=== PATIENT | female | born 1955 | race Caucasian/White ===

== ENCOUNTER 2022-11-01 16:21 | Inpatient (IN) | payer MEDICARE, MEDICAID ==
[2022-11-01] MEDS ORDERED: Sodium Chloride 0.9% 1,000 ML IV ONE (17:04)
[2022-11-01] MEDS ORDERED: Ondansetron 4 MG/2 ML SDV IVPUSH ONE (17:12)
[2022-11-01] MEDS ORDERED: Piperacillin/Tazobactam 4.5 GM in Sodium Chloride 0.9% 100 ML IV ONE (17:13)
[2022-11-01 17:20] LABS: BASOPHILS ABSOLUTE AUTO 0.01 K/mm3 (0.01-0.08); BASOPHILS PERCENT AUTO 0.1 % (0.1-1.2); EOSINOPHILS ABSOLUTE AUTO 0.03 K/mm3 (0.04-0.36); EOSINOPHILS PERCENT AUTO 0.3 (0.7-5.8); HEMATOCRIT 44.4 % (34.1-44.9); HEMOGLOBIN 14.4 gm/dl (11.2-15.7); IMMATURE GRAN ABSOLUTE AUTO 0.01 K/mm3 (0.00-0.10); IMMATURE GRAN PERCENT AUTO 0.1 % (<=1.0); LYMPHOCYTES ABSOLUTE AUTO 0.63 K/mm3 (1.18-3.74); LYMPHOCYTES PERCENT AUTO 6.2 % (19.3-51.7); MEAN CORPUSCULAR HEMOGLOBIN 30.1 pg (25.6-32.2); MEAN CORPUSCULAR HGB CONC 32.4 g/dl (32.2-35.5); MEAN CORPUSCULAR VOLUME 92.9 fl (79.4-94.8); MEAN PLATELET VOLUME 8.4 fl (9.4-12.3); MONOCYTES ABSOLUTE AUTO 0.41 K/mm3 (0.24-0.36); NEUTROPHILS ABSOLUTE AUTO 9.11 K/mm3 (1.56-6.13); NEUTROPHILS PERCENT AUTO 89.3 % (34.0-71.1); PLATELET COUNT,PLT 532 K/mm3 (182-369); RED BLOOD CELL COUNT 4.78 M/mm3 (3.98-5.22)
[2022-11-01 17:29] LABS: INR 0.98; PROTHROMBIN TIME 10.5 SECONDS (9.7-12.0)
[2022-11-01] MEDS ORDERED: VANCOmycin 1.75 GM/350 ML 1.75 GM in Premix Bag 1 BAG IV ONE (17:30)
[2022-11-01 17:31] LABS: PTT,PARTIAL THROMBOPLSTIN TIME 29.1 SECONDS (21.7-31.4)
[2022-11-01 17:38] LABS: LACTIC ACID 2.5 mmol/L (0.4-2.0)
[2022-11-01 17:43] LABS: A/G RATIO 0.4 (1-2); ALANINE AMINOTRANSFERASE,ALT 36 U/L (14-59); ALBUMIN 2.1 g/dl (3.4-5.0); ALKALINE PHOSPHATASE 191 U/L (46-116); ANION GAP 22.8 (5-15); ASPARTATE AMNIOTRANSFERASE,AST 40 U/L (15-37); BILIRUBIN TOTAL 0.3 mg/dL (0.2-1.0); BLOOD UREA NITROGEN,BUN 7 mg/dL (7-18); BUN/CREATININE RATIO 7.8 (14-18); CALCIUM 9.1 mg/dL (8.5-10.1); CARBON DIOXIDE,CO2 19 mEq/L (21-32); CHLORIDE,CL 96 mEq/L (98-107); CREATININE 0.9 mg/dL (0.55-1.02); ESTIMATED GFR 71 mL/min (>60); MAGNESIUM 1.2 mg/dL (1.8-2.4); POTASSIUM,K 2.8 mEq/L (3.5-5.1); PROTEIN TOTAL,TP 7.9 g/dl (6.4-8.2); SODIUM,NA 135 mEq/L (136-145); TROPONIN I HIGH SENSITIVITY 8 pg/mL (<=51)
[2022-11-01 17:44] LABS: GLUCOSE RANDOM 414 mg/dL (70-99)
[2022-11-01] MEDS ORDERED: Magnesium Sulfate/Water 2 GM in Premix Bag 1 BAG IV ONE (17:46)
[2022-11-01 18:01] LABS: C-REACTIVE PROTEIN 23.9 mg/dL (<1.0)
[2022-11-01] MEDS: Potassium Chloride 10 MEQ in Premix Bag 1 BAG IV SCH ×5 (18:24→23:58)
[2022-11-01] MEDS ORDERED: Insulin Regular, Human 100 Units/ML 3 ML Vial IV ONE (20:11)
[2022-11-01] MEDS ORDERED: HYDROmorphone 0.5 MG/0.5 ML Syringe IVPUSH ONE (20:18)
[2022-11-01] MEDS: Sodium Chloride 0.9% 1,000 ML IV SCH (20:47)
[2022-11-01 21:23] LABS: ANION GAP 20.3 (5-15); BUN/CREATININE RATIO 6.7 (14-18); CALCIUM 7.8 mg/dL (8.5-10.1); CREATININE 0.9 mg/dL (0.55-1.02); EST CRCL DRUG DOSING (CG) 49.95 mL/min; POTASSIUM,K 3.3 mEq/L (3.5-5.1)
[2022-11-01] MEDS ORDERED: Insulin Regular in 0.9 % NACL 100 ML IV SCH (21:30)
[2022-11-01] MEDS ORDERED: Insulin Regular, Human 100 Units/ML 3 ML Vial SUBCUT ONE (23:04)
[2022-11-02] MEDS ORDERED: Piperacillin/Tazobactam 3.375 GM in Sodium Chloride 0.9% 100 ML IV SCH ×2
[2022-11-02] MEDS: Potassium Chloride 10 MEQ in Premix Bag 1 BAG IV SCH ×3 (00:54→03:00)
[2022-11-02] MEDS ORDERED: Ondansetron 4 MG/2 ML SDV IVPUSH PRN ×2 (01:31→17:41)
[2022-11-02] MEDS ORDERED: Acetaminophen 325 MG Tab PO PRN (01:45)
[2022-11-02] MEDS: Sodium Chloride 0.9% 1,000 ML IV SCH ×4 (02:00→18:36)
[2022-11-02] MEDS: Insulin Lispro 100 Unit/ML 3 ML KwikPen SUBCUT SCH ×2 (09:05→10:56)
[2022-11-02] MEDS: Piperacillin/Tazobactam 4.5 GM in Sodium Chloride 0.9% 100 ML IV SCH ×2 (09:05→17:50)
[2022-11-02 10:52] LABS: ANION GAP 18.2 (5-15); BUN/CREATININE RATIO 8.3 (14-18); CALCIUM 8.2 mg/dL (8.5-10.1); CREATININE 0.6 mg/dL (0.55-1.02); EST CRCL DRUG DOSING (CG) 74.92 mL/min; POTASSIUM,K 3.2 mEq/L (3.5-5.1)
[2022-11-02] MEDS: Acetaminophen/oxyCODONE 325-5 MG Tab PO PRN ×3 (10:53→20:45)
[2022-11-02 12:01] LABS: HEMATOCRIT 37.1 % (34.1-44.9); MEAN CORPUSCULAR HEMOGLOBIN 30.8 pg (25.6-32.2); MEAN CORPUSCULAR HGB CONC 32.3 g/dl (32.2-35.5); MEAN CORPUSCULAR VOLUME 95.1 fl (79.4-94.8); MEAN PLATELET VOLUME 8.2 fl (9.4-12.3); WHITE BLOOD CELL COUNT,WBC 11.07 K/mm3 (3.98-10.04)
[2022-11-02 12:11] LABS: PLATELET COUNT,PLT 427 K/mm3 (182-369)
[2022-11-02] MEDS ORDERED: Nystatin Topical Powder 15 GM Bottle TOP SCH ×2 (13:00→13:15)
[2022-11-02] MEDS ORDERED: Insulin Regular in 0.9 % NACL 100 ML IV SCH ×2 (17:15→21:00)
[2022-11-02] MEDS ORDERED: Insulin Lispro 100 Unit/ML 3 ML KwikPen SUBCUT SCH (17:45)
[2022-11-02 18:30] LABS: ANION GAP 19.5 (5-15); BUN/CREATININE RATIO 7.1 (14-18); CALCIUM 7.9 mg/dL (8.5-10.1); CREATININE 0.7 mg/dL (0.55-1.02); EST CRCL DRUG DOSING (CG) 64.21 mL/min; POTASSIUM,K 3.5 mEq/L (3.5-5.1)
[2022-11-02] MEDS: VANCOmycin 1.25 GM/250 ML 1.25 GM in Premix Bag 1 BAG IV SCH (18:57)
[2022-11-02] MEDS ORDERED: VANCOmycin 1.25 GM/250 ML 1.25 GM in Premix Bag 1 BAG IV SCH (19:00)
[2022-11-02 22:02] LABS: BUN/CREATININE RATIO 7.1 (14-18); CALCIUM 7.5 mg/dL (8.5-10.1); CREATININE 0.7 mg/dL (0.55-1.02); EST CRCL DRUG DOSING (CG) 64.21 mL/min
[2022-11-02] MEDS: Nystatin Topical Powder 15 GM Bottle TOP SCH (22:30)
[2022-11-02] MEDS ORDERED: Insulin Glargine,Human Rec. Analog 100 Units/ML 3 ML Pen SUBCUT ONE (23:30)
[2022-11-02] MEDS ORDERED: Potassium Chloride 20 MEQ Tab.ER PO ONE (23:32)
[2022-11-03] MEDS: Sodium Chloride 0.9% 1,000 ML IV SCH ×3 (00:01→11:16)
[2022-11-03] MEDS: Potassium Chloride 10 MEQ in Premix Bag 1 BAG IV SCH ×4 (00:01→03:00)
[2022-11-03] MEDS: Piperacillin/Tazobactam 4.5 GM in Sodium Chloride 0.9% 100 ML IV SCH ×3 (01:45→17:38)
[2022-11-03] MEDS: Acetaminophen/oxyCODONE 325-5 MG Tab PO PRN ×5 (02:51→20:14)
[2022-11-03 06:26] LABS: ANION GAP 20.6 (5-15); BUN/CREATININE RATIO 8.3 (14-18); CALCIUM 8.1 mg/dL (8.5-10.1); CREATININE 0.6 mg/dL (0.55-1.02); EST CRCL DRUG DOSING (CG) 74.92 mL/min; POTASSIUM,K 3.6 mEq/L (3.5-5.1)
[2022-11-03] MEDS: VANCOmycin 1.25 GM/250 ML 1.25 GM in Premix Bag 1 BAG IV SCH (07:17)
[2022-11-03] MEDS: Insulin Lispro 100 Unit/ML 3 ML KwikPen SUBCUT SCH ×4 (08:30→21:57)
[2022-11-03] MEDS: Nystatin Topical Powder 15 GM Bottle TOP SCH ×2 (08:32→20:13)
[2022-11-03] MEDS ORDERED: Insulin Glargine,Human Rec. Analog 100 Units/ML 3 ML Pen SUBCUT SCH ×2 (11:30→21:00)
[2022-11-03] MEDS ORDERED: Insulin Regular in 0.9 % NACL 100 ML IV SCH (12:30)
[2022-11-03] MEDS: Enoxaparin 40 MG/0.4 ML Syringe SUBCUT SCH (13:18)
[2022-11-03 13:49] LABS: ANION GAP 16.3 (5-15); BUN/CREATININE RATIO 6.3 (14-18); CALCIUM 7.8 mg/dL (8.5-10.1); CREATININE 0.8 mg/dL (0.55-1.02); EST CRCL DRUG DOSING (CG) 55.7 mL/min; POTASSIUM,K 3.3 mEq/L (3.5-5.1)
[2022-11-03] MEDS: HYDROmorphone 0.5 MG/0.5 ML Syringe IVPUSH PRN ×2 (15:54→22:46)
[2022-11-03] MEDS ORDERED: Dextrose 5% in Water 1,000 ML IV SCH (17:30)
[2022-11-03 18:29] LABS: ANION GAP 19.9 (5-15); BUN/CREATININE RATIO 8.6 (14-18); CALCIUM 7.9 mg/dL (8.5-10.1); CREATININE 0.7 mg/dL (0.55-1.02); EST CRCL DRUG DOSING (CG) 63.66 mL/min
[2022-11-03 18:36] LABS: POTASSIUM,K 3.9 mEq/L (3.5-5.1)
[2022-11-03] MEDS: VANCOmycin 1.5 GM/300 ML 1.5 GM in Premix Bag 1 BAG IV SCH (20:14)
[2022-11-03 21:23] LABS: ANION GAP 15.6 (5-15); CREATININE 0.7 mg/dL (0.55-1.02); EST CRCL DRUG DOSING (CG) 63.66 mL/min; POTASSIUM,K 3.6 mEq/L (3.5-5.1)
[2022-11-04 01:34] LABS: ANION GAP 17.2 (5-15); CALCIUM 7.9 mg/dL (8.5-10.1); CREATININE 0.6 mg/dL (0.55-1.02); EST CRCL DRUG DOSING (CG) 74.27 mL/min; POTASSIUM,K 3.2 mEq/L (3.5-5.1)
[2022-11-04] MEDS: Piperacillin/Tazobactam 4.5 GM in Sodium Chloride 0.9% 100 ML IV SCH ×3 (02:05→18:19)
[2022-11-04] MEDS: Acetaminophen/oxyCODONE 325-5 MG Tab PO PRN ×6 (02:09→22:12)
[2022-11-04] MEDS ORDERED: Dextrose 5%-0.45% NaCl 1,000 ML ONE (02:43)
[2022-11-04] MEDS: Dextrose 5%-0.45% NaCl 1,000 ML IV SCH ×3 (02:53→18:42)
[2022-11-04] MEDS: Potassium Chloride 10 MEQ in Premix Bag 1 BAG IV SCH ×4 (04:53→08:12)
[2022-11-04 05:31] LABS: BUN/CREATININE RATIO 7.1 (14-18); CALCIUM 7.6 mg/dL (8.5-10.1); CREATININE 0.7 mg/dL (0.55-1.02); EST CRCL DRUG DOSING (CG) 63.66 mL/min
[2022-11-04] MEDS: VANCOmycin 1.5 GM/300 ML 1.5 GM in Premix Bag 1 BAG IV SCH ×2 (06:23→18:45)
[2022-11-04] MEDS ORDERED: Insulin Glargine,Human Rec. Analog 100 Units/ML 3 ML Pen SUBCUT SCH (09:00)
[2022-11-04 10:00] LABS: BUN/CREATININE RATIO 7.1 (14-18); CALCIUM 8.2 mg/dL (8.5-10.1); CREATININE 0.7 mg/dL (0.55-1.02); EST CRCL DRUG DOSING (CG) 63.66 mL/min
[2022-11-04 13:38] LABS: ANION GAP 16.5 (5-15); BUN/CREATININE RATIO 5.7 (14-18); CALCIUM 8.2 mg/dL (8.5-10.1); CREATININE 0.7 mg/dL (0.55-1.02); EST CRCL DRUG DOSING (CG) 63.66 mL/min; POTASSIUM,K 3.5 mEq/L (3.5-5.1)
[2022-11-04] MEDS: Enoxaparin 40 MG/0.4 ML Syringe SUBCUT SCH (14:16)
[2022-11-04] MEDS: Nystatin Topical Powder 15 GM Bottle TOP SCH ×2 (14:21→20:52)
[2022-11-04 18:17] LABS: ANION GAP 16.5 (5-15); BUN/CREATININE RATIO 6.7 (14-18); CALCIUM 8.1 mg/dL (8.5-10.1); CREATININE 0.6 mg/dL (0.55-1.02); EST CRCL DRUG DOSING (CG) 74.27 mL/min; POTASSIUM,K 3.5 mEq/L (3.5-5.1)
[2022-11-04] MEDS: HYDROmorphone 0.5 MG/0.5 ML Syringe IVPUSH PRN (20:47)
[2022-11-04 22:29] LABS: ANION GAP 18.5 (5-15); CREATININE 0.6 mg/dL (0.55-1.02); EST CRCL DRUG DOSING (CG) 74.27 mL/min; POTASSIUM,K 3.5 mEq/L (3.5-5.1)
[2022-11-05] MEDS: HYDROmorphone 0.5 MG/0.5 ML Syringe IVPUSH PRN ×4 (00:30→20:37)
[2022-11-05] MEDS: Dextrose 5%-0.45% NaCl 1,000 ML IV SCH (01:28)
[2022-11-05] MEDS: Piperacillin/Tazobactam 4.5 GM in Sodium Chloride 0.9% 100 ML IV SCH ×3 (02:00→17:51)
[2022-11-05] MEDS: Acetaminophen/oxyCODONE 325-5 MG Tab PO PRN ×5 (02:05→22:04)
[2022-11-05 02:16] LABS: ANION GAP 17.4 (5-15); CALCIUM 7.6 mg/dL (8.5-10.1); CREATININE 0.6 mg/dL (0.55-1.02); EST CRCL DRUG DOSING (CG) 74.27 mL/min; POTASSIUM,K 3.4 mEq/L (3.5-5.1)
[2022-11-05 06:06] LABS: HEMATOCRIT 32.6 % (34.1-44.9); MEAN CORPUSCULAR HGB CONC 31.3 g/dl (32.2-35.5); MEAN CORPUSCULAR VOLUME 95.9 fl (79.4-94.8); MEAN PLATELET VOLUME 7.9 fl (9.4-12.3); PLATELET COUNT,PLT 433 K/mm3 (182-369); WHITE BLOOD CELL COUNT,WBC 8.85 K/mm3 (3.98-10.04)
[2022-11-05] MEDS: VANCOmycin 1.5 GM/300 ML 1.5 GM in Premix Bag 1 BAG IV SCH ×2 (06:08→21:19)
[2022-11-05 06:11] LABS: HEMOGLOBIN 10.2 gm/dl (11.2-15.7)
[2022-11-05 06:23] LABS: ANION GAP 12.3 (5-15); CALCIUM 7.9 mg/dL (8.5-10.1); CREATININE 0.6 mg/dL (0.55-1.02); EST CRCL DRUG DOSING (CG) 74.27 mL/min; POTASSIUM,K 3.3 mEq/L (3.5-5.1)
[2022-11-05] MEDS ORDERED: Magnesium Sulfate/Water 2 GM/50 ML BAG IV ONE (08:00)
[2022-11-05] MEDS ORDERED: Magnesium Sulfate (4.06 MEQ/ML) 5 GM/10 ML SDV IV ONE (08:00)
[2022-11-05] MEDS ORDERED: Magnesium Sulfate/Water 50 ML ONE (08:30)
[2022-11-05] MEDS: Dextrose 5%-0.9% NaCl with KCl 1,000 ML IV SCH ×3 (08:35→23:30)
[2022-11-05] MEDS: Potassium Chloride 10 MEQ in Premix Bag 1 BAG IV SCH ×4 (08:44→13:05)
[2022-11-05 09:26] LABS: ANION GAP 16.5 (5-15); BUN/CREATININE RATIO 3.3 (14-18); CALCIUM 8.1 mg/dL (8.5-10.1); CREATININE 0.6 mg/dL (0.55-1.02); EST CRCL DRUG DOSING (CG) 74.27 mL/min; POTASSIUM,K 3.5 mEq/L (3.5-5.1)
[2022-11-05] MEDS: Enoxaparin 40 MG/0.4 ML Syringe SUBCUT SCH (13:06)
[2022-11-05 13:51] LABS: ANION GAP 16.9 (5-15); CALCIUM 8.3 mg/dL (8.5-10.1); CREATININE 0.6 mg/dL (0.55-1.02); EST CRCL DRUG DOSING (CG) 74.27 mL/min; POTASSIUM,K 3.9 mEq/L (3.5-5.1)
[2022-11-05] MEDS: Calcium Carbonate 500 MG Tab.Chew PO PRN ×2 (14:03→18:19)
[2022-11-05] MEDS: Nystatin Topical Powder 15 GM Bottle TOP SCH ×2 (20:42→22:06)
[2022-11-05 21:54] LABS: ANION GAP 15.7 (5-15); BUN/CREATININE RATIO 2.9 (14-18); CALCIUM 7.8 mg/dL (8.5-10.1); CREATININE 0.7 mg/dL (0.55-1.02); EST CRCL DRUG DOSING (CG) 63.66 mL/min; POTASSIUM,K 3.7 mEq/L (3.5-5.1)
[2022-11-05] MEDS: traZODone 50 MG Tab PO PRN (22:04)
[2022-11-06] MEDS: HYDROmorphone 0.5 MG/0.5 ML Syringe IVPUSH PRN ×4 (00:06→18:06)
[2022-11-06 01:25] LABS: ANION GAP 14.8 (5-15); BUN/CREATININE RATIO 3.3 (14-18); CALCIUM 7.8 mg/dL (8.5-10.1); CREATININE 0.6 mg/dL (0.55-1.02); EST CRCL DRUG DOSING (CG) 74.27 mL/min; POTASSIUM,K 3.8 mEq/L (3.5-5.1)
[2022-11-06] MEDS: Piperacillin/Tazobactam 4.5 GM in Sodium Chloride 0.9% 100 ML IV SCH ×4 (02:13→19:52)
[2022-11-06] MEDS: Acetaminophen/oxyCODONE 325-5 MG Tab PO PRN ×5 (02:14→21:04)
[2022-11-06 05:18] LABS: BASOPHILS ABSOLUTE AUTO 0.02 K/mm3 (0.01-0.08); BASOPHILS PERCENT AUTO 0.2 % (0.1-1.2); EOSINOPHILS ABSOLUTE AUTO 0.14 K/mm3 (0.04-0.36); EOSINOPHILS PERCENT AUTO 1.2 (0.7-5.8); HEMATOCRIT 32.2 % (34.1-44.9); HEMOGLOBIN 10.2 gm/dl (11.2-15.7); IMMATURE GRAN ABSOLUTE AUTO 0.06 K/mm3 (0.00-0.10); IMMATURE GRAN PERCENT AUTO 0.5 % (<=1.0); LYMPHOCYTES ABSOLUTE AUTO 1.18 K/mm3 (1.18-3.74); LYMPHOCYTES PERCENT AUTO 10.5 % (19.3-51.7); MEAN CORPUSCULAR HEMOGLOBIN 30.7 pg (25.6-32.2); MEAN CORPUSCULAR HGB CONC 31.7 g/dl (32.2-35.5); MEAN PLATELET VOLUME 7.9 fl (9.4-12.3); MONOCYTES ABSOLUTE AUTO 1.44 K/mm3 (0.24-0.36); MONOCYTES PERCENT AUTO 12.8 % (4.7-12.5); NEUTROPHILS PERCENT AUTO 74.8 % (34.0-71.1); PLATELET COUNT,PLT 446 K/mm3 (182-369); RED BLOOD CELL COUNT 3.32 M/mm3 (3.98-5.22); WHITE BLOOD CELL COUNT,WBC 11.24 K/mm3 (3.98-10.04)
[2022-11-06 05:36] LABS: A/G RATIO 0.3 (1-2); ALBUMIN 1.1 g/dl (3.4-5.0); ANION GAP 13.8 (5-15); BILIRUBIN TOTAL 0.2 mg/dL (0.2-1.0); BUN/CREATININE RATIO 3.3 (14-18); CALCIUM 7.9 mg/dL (8.5-10.1); CREATININE 0.6 mg/dL (0.55-1.02); EST CRCL DRUG DOSING (CG) 74.27 mL/min; POTASSIUM,K 3.8 mEq/L (3.5-5.1); PROTEIN TOTAL,TP 5.4 g/dl (6.4-8.2)
[2022-11-06 05:45] LABS: SLIDE REVIEW ABNORMAL SMEAR
[2022-11-06] MEDS: Dextrose 5%-0.9% NaCl with KCl 1,000 ML IV SCH ×3 (06:12→23:41)
[2022-11-06] MEDS: Nystatin Topical Powder 15 GM Bottle TOP SCH ×2 (09:00→21:06)
[2022-11-06] MEDS: Insulin Lispro 100 Unit/ML 3 ML KwikPen SUBCUT SCH ×3 (10:57→17:23)
[2022-11-06] MEDS: Enoxaparin 40 MG/0.4 ML Syringe SUBCUT SCH (13:18)
[2022-11-06] MEDS: traZODone 50 MG Tab PO PRN (21:04)
[2022-11-07] MEDS: Acetaminophen/oxyCODONE 325-5 MG Tab PO PRN ×4 (02:09→17:01)
[2022-11-07] MEDS: Piperacillin/Tazobactam 4.5 GM in Sodium Chloride 0.9% 100 ML IV SCH ×3 (02:09→18:21)
[2022-11-07 05:55] LABS: BASOPHILS ABSOLUTE AUTO 0.03 K/mm3 (0.01-0.08); BASOPHILS PERCENT AUTO 0.3 % (0.1-1.2); EOSINOPHILS ABSOLUTE AUTO 0.16 K/mm3 (0.04-0.36); EOSINOPHILS PERCENT AUTO 1.5 (0.7-5.8); HEMATOCRIT 31.9 % (34.1-44.9); HEMOGLOBIN 9.9 gm/dl (11.2-15.7); IMMATURE GRAN ABSOLUTE AUTO 0.08 K/mm3 (0.00-0.10); IMMATURE GRAN PERCENT AUTO 0.8 % (<=1.0); LYMPHOCYTES ABSOLUTE AUTO 1.16 K/mm3 (1.18-3.74); MEAN CORPUSCULAR HEMOGLOBIN 30.3 pg (25.6-32.2); MEAN CORPUSCULAR VOLUME 97.6 fl (79.4-94.8); MONOCYTES ABSOLUTE AUTO 1.37 K/mm3 (0.24-0.36); NEUTROPHILS ABSOLUTE AUTO 7.73 K/mm3 (1.56-6.13); NEUTROPHILS PERCENT AUTO 73.4 % (34.0-71.1); PLATELET COUNT,PLT 467 K/mm3 (182-369); RED BLOOD CELL COUNT 3.27 M/mm3 (3.98-5.22); WHITE BLOOD CELL COUNT,WBC 10.53 K/mm3 (3.98-10.04)
[2022-11-07 06:14] LABS: A/G RATIO 0.2 (1-2); ANION GAP 11.9 (5-15); BILIRUBIN TOTAL 0.2 mg/dL (0.2-1.0); BUN/CREATININE RATIO 2.9 (14-18); CREATININE 0.7 mg/dL (0.55-1.02); EST CRCL DRUG DOSING (CG) 63.66 mL/min; MAGNESIUM 1.6 mg/dL (1.8-2.4); POTASSIUM,K 3.9 mEq/L (3.5-5.1); PROTEIN TOTAL,TP 5.4 g/dl (6.4-8.2)
[2022-11-07] MEDS: Dextrose 5%-0.9% NaCl with KCl 1,000 ML IV SCH (06:22)
[2022-11-07 06:28] LABS: SLIDE REVIEW ABNORMAL SMEAR
[2022-11-07] MEDS: Insulin Lispro 100 Unit/ML 3 ML KwikPen SUBCUT SCH ×3 (07:59→18:12)
[2022-11-07 10:30] LABS: HEMOGLOBIN A1C >14.0 %
[2022-11-07] MEDS ORDERED: Magnesium Sulfate/Water 2 GM in Premix Bag 1 BAG IV ONE (11:54)
[2022-11-07] MEDS ORDERED: Iopamidol 612 MG/ML 100 ML Bottle IVPUSH ONE (12:25)
[2022-11-07] MEDS ORDERED: Sodium Chloride 0.9% 10 ML Syringe FLUSH PRN (12:25)
[2022-11-07] MEDS: Insulin Glargine,Human Rec. Analog 100 Units/ML 3 ML Pen SUBCUT SCH (12:33)
[2022-11-07] MEDS: Nystatin Topical Powder 15 GM Bottle TOP SCH ×2 (12:36→20:44)
[2022-11-07] MEDS: Enoxaparin 40 MG/0.4 ML Syringe SUBCUT SCH (12:46)
[2022-11-07] MEDS: HYDROmorphone 0.5 MG/0.5 ML Syringe IVPUSH PRN (13:17)
[2022-11-07] MEDS: Gabapentin 100 MG Cap PO SCH ×2 (15:43→20:43)
[2022-11-07] MEDS: Acetaminophen 325 MG Tab PO PRN (17:02)
[2022-11-07] MEDS: Mirtazapine 15 MG Tab PO SCH (20:43)
[2022-11-08] MEDS: Acetaminophen/oxyCODONE 325-5 MG Tab PO PRN ×5 (00:07→18:03)
[2022-11-08] MEDS: traZODone 50 MG Tab PO PRN ×2 (00:08→20:46)
[2022-11-08] MEDS: Piperacillin/Tazobactam 4.5 GM in Sodium Chloride 0.9% 100 ML IV SCH ×3 (02:20→18:03)
[2022-11-08 06:19] LABS: BASOPHILS ABSOLUTE AUTO 0.02 K/mm3 (0.01-0.08); BASOPHILS PERCENT AUTO 0.2 % (0.1-1.2); EOSINOPHILS ABSOLUTE AUTO 0.21 K/mm3 (0.04-0.36); EOSINOPHILS PERCENT AUTO 2.4 (0.7-5.8); HEMATOCRIT 31.1 % (34.1-44.9); HEMOGLOBIN 9.5 gm/dl (11.2-15.7); IMMATURE GRAN ABSOLUTE AUTO 0.07 K/mm3 (0.00-0.10); IMMATURE GRAN PERCENT AUTO 0.8 % (<=1.0); LYMPHOCYTES ABSOLUTE AUTO 1.06 K/mm3 (1.18-3.74); MEAN CORPUSCULAR HEMOGLOBIN 29.9 pg (25.6-32.2); MEAN CORPUSCULAR HGB CONC 30.5 g/dl (32.2-35.5); MEAN CORPUSCULAR VOLUME 97.8 fl (79.4-94.8); MEAN PLATELET VOLUME 8.2 fl (9.4-12.3); MONOCYTES ABSOLUTE AUTO 1.13 K/mm3 (0.24-0.36); MONOCYTES PERCENT AUTO 12.8 % (4.7-12.5); NEUTROPHILS ABSOLUTE AUTO 6.32 K/mm3 (1.56-6.13); NEUTROPHILS PERCENT AUTO 71.8 % (34.0-71.1); PLATELET COUNT,PLT 447 K/mm3 (182-369); RED BLOOD CELL COUNT 3.18 M/mm3 (3.98-5.22); WHITE BLOOD CELL COUNT,WBC 8.81 K/mm3 (3.98-10.04)
[2022-11-08 06:24] LABS: ANION GAP 15.3 (5-15); BUN/CREATININE RATIO 2.9 (14-18); C-REACTIVE PROTEIN 11.5 mg/dL (<1.0); CALCIUM 8.3 mg/dL (8.5-10.1); CREATININE 0.7 mg/dL (0.55-1.02); EST CRCL DRUG DOSING (CG) 63.66 mL/min; MAGNESIUM 1.9 mg/dL (1.8-2.4); POTASSIUM,K 3.3 mEq/L (3.5-5.1)
[2022-11-08] MEDS: Insulin Lispro 100 Unit/ML 3 ML KwikPen SUBCUT SCH ×3 (07:32→17:00)
[2022-11-08] MEDS: buPROPion 150 MG Tab.SR PO SCH (08:25)
[2022-11-08] MEDS: Magnesium Oxide 400 MG Tab PO SCH (08:25)
[2022-11-08] MEDS: Gabapentin 100 MG Cap PO SCH ×3 (08:25→20:49)
[2022-11-08] MEDS: Potassium Chloride 20 MEQ Tab.ER PO SCH ×2 (08:26→16:01)
[2022-11-08] MEDS: Nystatin Topical Powder 15 GM Bottle TOP SCH ×2 (08:27→20:48)
[2022-11-08] MEDS: Insulin Glargine,Human Rec. Analog 100 Units/ML 3 ML Pen SUBCUT SCH (08:27)
[2022-11-08] MEDS: Enoxaparin 40 MG/0.4 ML Syringe SUBCUT SCH (13:21)
[2022-11-08] MEDS: Acetaminophen 325 MG Tab PO PRN (20:46)
[2022-11-08] MEDS: Mirtazapine 15 MG Tab PO SCH (20:46)
[2022-11-09] MEDS: Piperacillin/Tazobactam 4.5 GM in Sodium Chloride 0.9% 100 ML IV SCH ×3 (01:48→17:18)
[2022-11-09] MEDS: Acetaminophen/oxyCODONE 325-5 MG Tab PO PRN ×4 (03:03→21:31)
[2022-11-09 05:55] LABS: BASOPHILS ABSOLUTE AUTO 0.03 K/mm3 (0.01-0.08); BASOPHILS PERCENT AUTO 0.3 % (0.1-1.2); EOSINOPHILS PERCENT AUTO 2.2 (0.7-5.8); HEMATOCRIT 32.2 % (34.1-44.9); IMMATURE GRAN ABSOLUTE AUTO 0.07 K/mm3 (0.00-0.10); IMMATURE GRAN PERCENT AUTO 0.8 % (<=1.0); LYMPHOCYTES ABSOLUTE AUTO 1.14 K/mm3 (1.18-3.74); LYMPHOCYTES PERCENT AUTO 12.7 % (19.3-51.7); MEAN CORPUSCULAR HEMOGLOBIN 30.5 pg (25.6-32.2); MEAN CORPUSCULAR HGB CONC 31.1 g/dl (32.2-35.5); MEAN CORPUSCULAR VOLUME 98.2 fl (79.4-94.8); MONOCYTES ABSOLUTE AUTO 1.05 K/mm3 (0.24-0.36); MONOCYTES PERCENT AUTO 11.7 % (4.7-12.5); NEUTROPHILS ABSOLUTE AUTO 6.47 K/mm3 (1.56-6.13); NEUTROPHILS PERCENT AUTO 72.3 % (34.0-71.1); PLATELET COUNT,PLT 478 K/mm3 (182-369); RED BLOOD CELL COUNT 3.28 M/mm3 (3.98-5.22); WHITE BLOOD CELL COUNT,WBC 8.96 K/mm3 (3.98-10.04)
[2022-11-09 06:11] LABS: BUN/CREATININE RATIO 6.3 (14-18); C-REACTIVE PROTEIN 11.6 mg/dL (<1.0); CALCIUM 8.3 mg/dL (8.5-10.1); CREATININE 0.8 mg/dL (0.55-1.02); EST CRCL DRUG DOSING (CG) 55.7 mL/min; MAGNESIUM 1.7 mg/dL (1.8-2.4)
[2022-11-09 06:24] LABS: ANION GAP 14.4 (5-15)
[2022-11-09 06:25] LABS: POTASSIUM,K 4.4 mEq/L (3.5-5.1)
[2022-11-09] MEDS: Insulin Lispro 100 Unit/ML 3 ML KwikPen SUBCUT SCH ×3 (07:15→17:09)
[2022-11-09] MEDS ORDERED: Magnesium Sulfate/Water 2 GM in Premix Bag 1 BAG IV ONE (08:00)
[2022-11-09] MEDS: Gabapentin 100 MG Cap PO SCH ×3 (08:27→21:31)
[2022-11-09] MEDS: HYDROmorphone 0.5 MG/0.5 ML Syringe IVPUSH PRN ×2 (08:27→17:18)
[2022-11-09] MEDS: Insulin Glargine,Human Rec. Analog 100 Units/ML 3 ML Pen SUBCUT SCH (08:28)
[2022-11-09] MEDS: Magnesium Oxide 400 MG Tab PO SCH (08:28)
[2022-11-09] MEDS: buPROPion 150 MG Tab.SR PO SCH (08:28)
[2022-11-09] MEDS: Nystatin Topical Powder 15 GM Bottle TOP SCH ×2 (08:29→21:31)
[2022-11-09] MEDS ORDERED: LORazepam 2 MG/ML SDV IVPUSH ONE (10:00)
[2022-11-09] MEDS: Saccharomyces Boulardii (Probiotic) 250 MG Cap PO SCH ×2 (10:58→21:31)
[2022-11-09] MEDS: Enoxaparin 40 MG/0.4 ML Syringe SUBCUT SCH (14:49)
[2022-11-09] MEDS: Mirtazapine 15 MG Tab PO SCH (21:31)
[2022-11-09] MEDS: traZODone 50 MG Tab PO PRN (21:31)
[2022-11-10] MEDS: Piperacillin/Tazobactam 4.5 GM in Sodium Chloride 0.9% 100 ML IV SCH ×3 (01:33→18:13)
[2022-11-10] MEDS: Acetaminophen/oxyCODONE 325-5 MG Tab PO PRN ×3 (05:29→15:41)
[2022-11-10 06:05] LABS: BASOPHILS ABSOLUTE AUTO 0.02 K/mm3 (0.01-0.08); BASOPHILS PERCENT AUTO 0.3 % (0.1-1.2); EOSINOPHILS ABSOLUTE AUTO 0.27 K/mm3 (0.04-0.36); EOSINOPHILS PERCENT AUTO 3.4 (0.7-5.8); HEMATOCRIT 34.7 % (34.1-44.9); HEMOGLOBIN 10.8 gm/dl (11.2-15.7); IMMATURE GRAN ABSOLUTE AUTO 0.04 K/mm3 (0.00-0.10); IMMATURE GRAN PERCENT AUTO 0.5 % (<=1.0); LYMPHOCYTES ABSOLUTE AUTO 1.25 K/mm3 (1.18-3.74); LYMPHOCYTES PERCENT AUTO 15.9 % (19.3-51.7); MEAN CORPUSCULAR HEMOGLOBIN 30.3 pg (25.6-32.2); MEAN CORPUSCULAR HGB CONC 31.1 g/dl (32.2-35.5); MEAN CORPUSCULAR VOLUME 97.5 fl (79.4-94.8); MEAN PLATELET VOLUME 8.1 fl (9.4-12.3); MONOCYTES ABSOLUTE AUTO 1.01 K/mm3 (0.24-0.36); MONOCYTES PERCENT AUTO 12.8 % (4.7-12.5); NEUTROPHILS ABSOLUTE AUTO 5.27 K/mm3 (1.56-6.13); NEUTROPHILS PERCENT AUTO 67.1 % (34.0-71.1); PLATELET COUNT,PLT 521 K/mm3 (182-369); RED BLOOD CELL COUNT 3.56 M/mm3 (3.98-5.22); WHITE BLOOD CELL COUNT,WBC 7.86 K/mm3 (3.98-10.04)
[2022-11-10 06:37] LABS: ANION GAP 14.1 (5-15); CALCIUM 8.8 mg/dL (8.5-10.1); CREATININE 0.8 mg/dL (0.55-1.02); EST CRCL DRUG DOSING (CG) 55.7 mL/min; POTASSIUM,K 4.1 mEq/L (3.5-5.1)
[2022-11-10 06:40] LABS: C-REACTIVE PROTEIN 13.3 mg/dL (<1.0)
[2022-11-10] MEDS: Insulin Lispro 100 Unit/ML 3 ML KwikPen SUBCUT SCH ×3 (07:08→17:22)
[2022-11-10 07:36] LABS: SLIDE REVIEW ABNORMAL SMEAR
[2022-11-10] MEDS: HYDROmorphone 0.5 MG/0.5 ML Syringe IVPUSH PRN ×2 (08:19→12:00)
[2022-11-10] MEDS: Gabapentin 100 MG Cap PO SCH ×2 (08:20→15:41)
[2022-11-10] MEDS: Magnesium Oxide 400 MG Tab PO SCH (08:20)
[2022-11-10] MEDS: Saccharomyces Boulardii (Probiotic) 250 MG Cap PO SCH (08:20)
[2022-11-10] MEDS: buPROPion 150 MG Tab.SR PO SCH (08:20)
[2022-11-10] MEDS: Insulin Glargine,Human Rec. Analog 100 Units/ML 3 ML Pen SUBCUT SCH (08:20)
[2022-11-10] MEDS: Nystatin Topical Powder 15 GM Bottle TOP SCH (08:24)
[2022-11-10] MEDS: Enoxaparin 40 MG/0.4 ML Syringe SUBCUT SCH (15:41)
== END 2022-11-10 18:15 | DRG 871 ==
LOC: JD.ED 16:21 → JD.MS 19:09 → JD.ICU 11-02 19:16 → JD.MS 11-06 06:28
PROVIDERS: ADMIT Hospitalist; ATTEND Hospitalist
PROC: 3E03329 Introduction of Other Anti-infective into Peripheral Vein, Percutaneous Approach (ICD-10-PCS; 2022-11-01)
PROC: 02HV33Z Insertion of Infusion Device into Superior Vena Cava, Percutaneous Approach (ICD-10-PCS; principal; 2022-11-04)
DX: A40.9 Streptococcal sepsis, unspecified (principal); E11.10 Type 2 diabetes mellitus with ketoacidosis without coma; M86.8X7 Other osteomyelitis, ankle and foot; Z16.39 Resistance to other specified antimicrobial drug; Z68.41 Body mass index [BMI] 40.0-44.9, adult; E66.9 Obesity, unspecified; E83.42 Hypomagnesemia; M19.90 Unspecified osteoarthritis, unspecified site; F32.A Depression, unspecified; Z91.148 Patient's other noncompliance with medication regimen for other reason; Z86.718 Personal history of other venous thrombosis and embolism; E11.69 Type 2 diabetes mellitus with other specified complication; I10 Essential (primary) hypertension; Z79.4 Long term (current) use of insulin; Z79.899 Other long term (current) drug therapy; Z88.0 Allergy status to penicillin; Z88.8 Allergy status to other drugs, medicaments and biological substances; Z88.1 Allergy status to other antibiotic agents; Z90.710 Acquired absence of both cervix and uterus; Z98.890 Other specified postprocedural states; Z90.49 Acquired absence of other specified parts of digestive tract; Z87.891 Personal history of nicotine dependence; Z88.2 Allergy status to sulfonamides
CPT/HCPCS: 29580-GP; 36415; 36556; 71045; 71045-26; 73600-26-LT; 73600-26-RT; 73600-LT; 73600-RT; 73701-26-LT; 73701-26-RT; 73701-LT; 73701-RT; 73718-26-LT; 73718-LT; 80048; 80053; 80202; 82009; 82800; 82947; 83036; 83605; 83735; 83880; 84484; 85025; 85027; 85610; 85730; 86140; 87040; 87070; 87075; 87077; 87154; 87186; 87205; 90792; 93005; 93010; 96365; 96366; 96367; 96368; 96375; 96376; 97116-GP; 97162-GP; 97165-GO; 97166-GO; 97530-GO; 97530-GP; 97535-GO; 97597-GP; 99223; 99232; 99239; 99284; 99284-25; A9270-GY; J1170; J1650; J1815; J1815-GY; J2060; J2405; J2543; J3370; J3475; J3480; J3490; J7030; J7042; J7050; J7060; Q9967

== ENCOUNTER 2023-01-17 08:32 | Emergency (ER) | payer MEDICAID, MEDICARE ==
[2023-01-17 09:47] LABS: BASOPHILS ABSOLUTE AUTO 0.02 K/mm3 (0.01-0.08); BASOPHILS PERCENT AUTO 0.2 % (0.1-1.2); EOSINOPHILS ABSOLUTE AUTO 0.12 K/mm3 (0.04-0.36); EOSINOPHILS PERCENT AUTO 1.2 (0.7-5.8); HEMOGLOBIN 9.8 gm/dl (11.2-15.7); IMMATURE GRAN ABSOLUTE AUTO 0.01 K/mm3 (0.00-0.10); IMMATURE GRAN PERCENT AUTO 0.1 % (<=1.0); LYMPHOCYTES ABSOLUTE AUTO 1.27 K/mm3 (1.18-3.74); LYMPHOCYTES PERCENT AUTO 13.1 % (19.3-51.7); MEAN CORPUSCULAR HGB CONC 31.6 g/dl (32.2-35.5); MEAN CORPUSCULAR VOLUME 94.8 fl (79.4-94.8); MEAN PLATELET VOLUME 8.4 fl (9.4-12.3); MONOCYTES ABSOLUTE AUTO 0.95 K/mm3 (0.24-0.36); MONOCYTES PERCENT AUTO 9.8 % (4.7-12.5); NEUTROPHILS PERCENT AUTO 75.6 % (34.0-71.1); PLATELET COUNT,PLT 508 K/mm3 (182-369); RED BLOOD CELL COUNT 3.27 M/mm3 (3.98-5.22); WHITE BLOOD CELL COUNT,WBC 9.67 K/mm3 (3.98-10.04)
[2023-01-17 10:15] LABS: A/G RATIO 0.4 (1-2); ALBUMIN 2.4 g/dl (3.4-5.0); ANION GAP 14.1 (5-15); BILIRUBIN TOTAL 0.2 mg/dL (0.2-1.0); BUN/CREATININE RATIO 21.4 (14-18); CALCIUM 10.2 mg/dL (8.5-10.1); CREATININE 1.4 mg/dL (0.55-1.02); EST CRCL DRUG DOSING (CG) 31.68 mL/min; MAGNESIUM 1.9 mg/dL (1.8-2.4); POTASSIUM,K 5.1 mEq/L (3.5-5.1); PROTEIN TOTAL,TP 8.1 g/dl (6.4-8.2)
[2023-01-17] MEDS ORDERED: Ondansetron 4 MG Tab.DIS PO ONE (10:16)
[2023-01-17] MEDS ORDERED: Lactated Ringers 500 ML IV ONE (10:17)
[2023-01-17] MEDS ORDERED: Lactated Ringers 1,000 ML IV SCH (10:30)
[2023-01-17 10:34] LABS: C-REACTIVE PROTEIN 17.6 mg/dL (<1.0)
[2023-01-17] MEDS ORDERED: Sodium Chloride 0.9% 1,000 ML IV ONE (13:29)
[2023-01-17] MEDS ORDERED: oxyCODONE 5 MG Tab PO ONE (14:33)
[2023-01-17] MEDS ORDERED: VANCOmycin 1.25 GM/250 ML 1.25 GM in Premix Bag 1 BAG IV SCH (15:00)
[2023-01-17] MEDS ORDERED: Sodium Chloride 0.9% 1,000 ML ONE (15:29)
== END 2023-01-17 15:40 ==
LOC: JD.ED 08:32
DX: E11.621 Type 2 diabetes mellitus with foot ulcer (principal); L97.519 Non-pressure chronic ulcer of other part of right foot with unspecified severity; I73.9 Peripheral vascular disease, unspecified; N28.9 Disorder of kidney and ureter, unspecified; Z88.1 Allergy status to other antibiotic agents; Z88.0 Allergy status to penicillin; Z88.8 Allergy status to other drugs, medicaments and biological substances; E11.9 Type 2 diabetes mellitus without complications; Z79.4 Long term (current) use of insulin; Z86.16 Personal history of COVID-19
CPT/HCPCS: 36415; 80053; 83605; 83690; 83735; 85025; 86140; 87040; 93005; 96361; 96374; 99284; A9270; J3370; J7030; J7120

== ENCOUNTER 2023-02-10 19:43 | Emergency (ER) | payer MEDICAID, MEDICARE ==
[2023-02-10] MEDS ORDERED: Sodium Chloride 0.9% 1,000 ML IV ONE (19:51)
[2023-02-10 20:29] LABS: BASOPHILS ABSOLUTE AUTO 0.03 K/mm3 (0.01-0.08); BASOPHILS PERCENT AUTO 0.4 % (0.1-1.2); EOSINOPHILS ABSOLUTE AUTO 0.11 K/mm3 (0.04-0.36); EOSINOPHILS PERCENT AUTO 1.6 (0.7-5.8); HEMATOCRIT 31.7 % (34.1-44.9); HEMOGLOBIN 9.9 gm/dl (11.2-15.7); IMMATURE GRAN ABSOLUTE AUTO 0.01 K/mm3 (0.00-0.10); IMMATURE GRAN PERCENT AUTO 0.1 % (<=1.0); LYMPHOCYTES ABSOLUTE AUTO 1.85 K/mm3 (1.18-3.74); LYMPHOCYTES PERCENT AUTO 27.5 % (19.3-51.7); MEAN CORPUSCULAR HEMOGLOBIN 29.2 pg (25.6-32.2); MEAN CORPUSCULAR HGB CONC 31.2 g/dl (32.2-35.5); MEAN CORPUSCULAR VOLUME 93.5 fl (79.4-94.8); MEAN PLATELET VOLUME 8.2 fl (9.4-12.3); MONOCYTES ABSOLUTE AUTO 0.67 K/mm3 (0.24-0.36); NEUTROPHILS ABSOLUTE AUTO 4.05 K/mm3 (1.56-6.13); NEUTROPHILS PERCENT AUTO 60.4 % (34.0-71.1); PLATELET COUNT,PLT 425 K/mm3 (182-369); RED BLOOD CELL COUNT 3.39 M/mm3 (3.98-5.22); WHITE BLOOD CELL COUNT,WBC 6.72 K/mm3 (3.98-10.04)
[2023-02-10 20:33] LABS: APPEARANCE,URINE CLEAR (Clear); BILIRUBIN,URINE NEGATIVE (Negative); COLOR,URINE LIGHT YELLOW (Yellow); GLUCOSE,URINE NEGATIVE (Negative); KETONES,URINE NEGATIVE (Negative); LEUKOCYTE ESTERASE,URINE 2+ (Negative); NITRITE,URINE NEGATIVE (Negative); OCCULT BLOOD,URINE NEGATIVE (Negative); PROTEIN,URINE 1+ (Negative); UROBILINOGEN,URINE 0.2 (0.2-1.0)
[2023-02-10 20:49] LABS: INR 1.05; PROTHROMBIN TIME 11.2 SECONDS (9.7-12.0)
[2023-02-10 21:04] LABS: A/G RATIO 0.5 (1-2); ALBUMIN 2.4 g/dl (3.4-5.0); ALKALINE PHOSPHATASE 108 U/L (46-116); ANION GAP 12.5 (5-15); ASPARTATE AMNIOTRANSFERASE,AST 13 U/L (15-37); BILIRUBIN TOTAL 0.1 mg/dL (0.2-1.0); BLOOD UREA NITROGEN,BUN 23 mg/dL (7-18); BUN/CREATININE RATIO 17.7 (14-18); CALCIUM 10.1 mg/dL (8.5-10.1); CARBON DIOXIDE,CO2 32 mEq/L (21-32); CHLORIDE,CL 102 mEq/L (98-107); CREATININE 1.3 mg/dL (0.55-1.02); ESTIMATED GFR 46 mL/min (>60); GLUCOSE RANDOM 120 mg/dL (70-99); POTASSIUM,K 4.5 mEq/L (3.5-5.1); PROTEIN TOTAL,TP 7.3 g/dl (6.4-8.2); SODIUM,NA 142 mEq/L (136-145); TROPONIN I HIGH SENSITIVITY 7 pg/mL (<=51)
[2023-02-10] MEDS ORDERED: cefTRIAXone 1 GM in Sodium Chloride 0.9% 100 ML IV ONE (21:14)
[2023-02-10 21:26] LABS: ALANINE AMINOTRANSFERASE,ALT 12 U/L (14-59)
[2023-02-10 21:28] LABS: BACTERIA,URINE MANY /hpf (FEW); RBC,URINE 0-5 /hpf (0-5); SQUAMOUS EPITHELIAL CELLS,UR 0-5 /hpf (0-5)
[2023-02-10 21:29] LABS: MUCUS,URINE FEW /hpf (FEW)
== END 2023-02-10 22:33 | disposition other institution (70) ==
LOC: JD.ED 19:43
DX: R41.82 Altered mental status, unspecified (principal); R53.1 Weakness; N39.0 Urinary tract infection, site not specified; E86.0 Dehydration; E11.9 Type 2 diabetes mellitus without complications; Z86.16 Personal history of COVID-19; Z88.2 Allergy status to sulfonamides; Z88.0 Allergy status to penicillin; Z88.8 Allergy status to other drugs, medicaments and biological substances; Z88.1 Allergy status to other antibiotic agents; Z79.4 Long term (current) use of insulin
CPT/HCPCS: 36415; 70450; 71045; 80053; 81001; 83605; 84484; 85025; 85610; 87040; 93005; 96361; 96365; 99285; J0696; J3490; J7030; 93010

== ENCOUNTER 2024-07-29 16:03 | Emergency (ER) | payer MEDICARE, MEDICAID ==
[2024-07-29 18:19] LABS: BASOPHILS PERCENT AUTO 0.2 % (0.0-1.0); EOSINOPHILS ABSOLUTE AUTO 0.2 K/mm3 (0.0-0.4); EOSINOPHILS PERCENT AUTO 2.1 % (0.0-6.0); HEMATOCRIT 36.5 % (37.0-47.0); HEMOGLOBIN 11.6 gm/dl (12.0-16.0); IMMATURE GRAN ABSOLUTE AUTO 0.02 K/mm3 (0.00-0.05); IMMATURE GRAN PERCENT AUTO 0.2 % (0.0-0.4); LYMPHOCYTES ABSOLUTE AUTO 1.8 K/mm3 (1.0-4.8); LYMPHOCYTES PERCENT AUTO 17.7 % (24.0-44.0); MEAN CORPUSCULAR HGB CONC 31.8 g/dl (32.0-36.0); MEAN CORPUSCULAR VOLUME 88.2 fl (83.0-99.0); MEAN PLATELET VOLUME 9.2 fl (9.4-12.3); MONOCYTES ABSOLUTE AUTO 0.7 K/mm3 (0.0-0.8); MONOCYTES PERCENT AUTO 6.8 % (0.0-8.0); NEUTROPHILS ABSOLUTE AUTO 7.4 K/mm3 (1.8-7.7); PLATELET COUNT,PLT 299 K/mm3 (150-400); RED BLOOD CELL COUNT 4.14 M/mm3 (4.10-5.30); WHITE BLOOD CELL COUNT,WBC 10.15 K/mm3 (3.9-11.3)
[2024-07-29 18:40] LABS: A/G RATIO 0.7 (1-2); ANION GAP 13.5 (5-15); BILIRUBIN TOTAL 0.2 mg/dL (0.2-1.0); BUN/CREATININE RATIO 16.9 (14-18); C-REACTIVE PROTEIN 1.14 mg/dL (<0.30); CREATININE 1.6 mg/dL (0.55-1.02); EST CRCL DRUG DOSING (CG) 27.35 mL/min; POTASSIUM,K 4.5 mEq/L (3.5-5.1); PROTEIN TOTAL,TP 7.5 g/dl (6.4-8.2)
[2024-07-29] MEDS: Levofloxacin 250 MG Tab PO ONE (21:26)
== END 2024-07-29 22:28 | disposition home or self-care (01) ==
LOC: JD.ED 16:03
DX: T83.511A Infection and inflammatory reaction due to indwelling urethral catheter, initial encounter (principal); I12.9 Hypertensive chronic kidney disease with stage 1 through stage 4 chronic kidney disease, or unspecified chronic kidney disease; N18.9 Chronic kidney disease, unspecified; E11.22 Type 2 diabetes mellitus with diabetic chronic kidney disease; E78.00 Pure hypercholesterolemia, unspecified; E11.40 Type 2 diabetes mellitus with diabetic neuropathy, unspecified; Z86.16 Personal history of COVID-19; Z90.710 Acquired absence of both cervix and uterus; Z79.899 Other long term (current) drug therapy; Z79.4 Long term (current) use of insulin; Z88.8 Allergy status to other drugs, medicaments and biological substances; Z88.0 Allergy status to penicillin; Z88.2 Allergy status to sulfonamides; Z88.1 Allergy status to other antibiotic agents
CPT/HCPCS: 36415; 80053; 85025; 86140; 93005; 99283; A9270; 93010; 99284

== ENCOUNTER 2025-04-22 21:30 | Emergency (ER) | payer MEDICARE, MEDICAID ==
[2025-04-22] MEDS ORDERED: Sodium Chloride 0.9% 10 ML Syringe FLUSH PRN (21:57)
[2025-04-22 22:03] LABS: APPEARANCE,URINE CLOUDY (Clear); GLUCOSE,URINE NEGATIVE (Negative); OCCULT BLOOD,URINE TRACE-INTACT (Negative)
[2025-04-22 22:11] LABS: BASOPHILS ABSOLUTE AUTO 0.1 K/mm3 (0.0-0.2); BASOPHILS PERCENT AUTO 0.5 % (0.0-1.0); EOSINOPHILS ABSOLUTE AUTO 0.1 K/mm3 (0.0-0.4); EOSINOPHILS PERCENT AUTO 1.2 % (0.0-6.0); IMMATURE GRAN ABSOLUTE AUTO 0.03 K/mm3 (0.00-0.05); IMMATURE GRAN PERCENT AUTO 0.3 % (0.0-0.4); LYMPHOCYTES ABSOLUTE AUTO 2.3 K/mm3 (1.0-4.8); LYMPHOCYTES PERCENT AUTO 20.1 % (24.0-44.0); MEAN PLATELET VOLUME 9.1 fl (9.4-12.3); MONOCYTES ABSOLUTE AUTO 0.8 K/mm3 (0.0-0.8); MONOCYTES PERCENT AUTO 6.9 % (0.0-8.0); NEUTROPHILS ABSOLUTE AUTO 8.2 K/mm3 (1.8-7.7); NEUTROPHILS PERCENT AUTO 71.0 % (41.0-71.0); NRBC ABSOLUTE 0.00 (0.00-0.02); NRBC PERCENT 0.0 % (0.0-0.2); PLATELET COUNT,PLT 347 K/mm3 (150-400); RED BLOOD CELL COUNT 4.62 M/mm3 (4.10-5.30); WHITE BLOOD CELL COUNT,WBC 11.55 K/mm3 (3.9-11.3)
[2025-04-22 22:24] LABS: EPITHELIAL CELLS,URINE 0-5 /hpf (0-5); OTHER CRYSTALS,URINE FEW /hpf; TRIPLE PHOSPHATE CRYSTALS,UR FEW /hpf
[2025-04-22 22:32] LABS: A/G RATIO 0.9 (1-2); ALANINE AMINOTRANSFERASE,ALT 63.0 U/L (14-59); ASPARTATE AMNIOTRANSFERASE,AST 20.0 U/L (15-37); BILIRUBIN TOTAL 0.3 mg/dL (0.2-1.0); BLOOD UREA NITROGEN,BUN 32.0 mg/dL (7-18); CARBON DIOXIDE,CO2 28.0 mEq/L (21-32); CHLORIDE,CL 104.0 mEq/L (98-107); CREATININE 1.5 mg/dL (0.55-1.02); EST CRCL DRUG DOSING (CG) 28.78 mL/min; ESTIMATED GFR 38.0 mL/min (>60); GLUCOSE RANDOM 192.0 mg/dL (70-99); POTASSIUM,K 5.2 mEq/L (3.5-5.1); PROTEIN TOTAL,TP 7.4 g/dl (6.4-8.2); SODIUM,NA 141.0 mEq/L (136-145)
== END 2025-04-22 23:43 | disposition home or self-care (01) ==
LOC: JD.ED 21:30
DX: T83.511A Infection and inflammatory reaction due to indwelling urethral catheter, initial encounter (principal); B37.2 Candidiasis of skin and nail; I12.9 Hypertensive chronic kidney disease with stage 1 through stage 4 chronic kidney disease, or unspecified chronic kidney disease; E11.40 Type 2 diabetes mellitus with diabetic neuropathy, unspecified; E11.22 Type 2 diabetes mellitus with diabetic chronic kidney disease; M19.90 Unspecified osteoarthritis, unspecified site; N18.9 Chronic kidney disease, unspecified; Z79.899 Other long term (current) drug therapy; Z88.2 Allergy status to sulfonamides; Z88.1 Allergy status to other antibiotic agents; Z86.16 Personal history of COVID-19; Z90.49 Acquired absence of other specified parts of digestive tract; Z90.710 Acquired absence of both cervix and uterus
CPT/HCPCS: 36415; 80053; 81001; 85025; 99284; A9270